=== PATIENT | female | born 1950 | race Caucasian/White ===

== ENCOUNTER 2020-03-18 19:30 | Emergency (ER) | payer MEDICARE, OTHER, SELFPAY ==
--- NOTE | ~2020-03-18 | CT_ITS ---
EXAMINATION: CT abdomen pelvis w con EXAM DATE: 03/18/2020 20:37 INDICATION: Left lower quadrant pain. TECHNIQUE: Spiral CT of the abdomen and pelvis was performed following intravenous injection of 100 m L Omnipaque 350. Axial, coronal and sagittal images were reviewed. The dose-length product (DLP) fo r this examination was 1517.69 mGy-cm. The exposure was tailored according to patient size (auto mA exposure control), and iterative reconstruction (ASIR) was used as additional dose reduction techniqu e. There is no prior study for comparison. FINDINGS: The liver, spleen, adrenal glands and pancreas are unremarkable. Gallbladder is unremarkab le. No biliary obstruction. Portal and splenic veins are patent. Kidneys enhance symmetrically. T here is no hydronephrosis. The uterus is unremarkable. The bladder is unremarkable. There is no retroperitoneal or pelvic lymphadenopathy. There is mild scattered arteriosclerotic disease. The appendix is normal. The stomach and small bowel are unremarkable. Mild to moderate sigmoid dive rticulosis with inflammation surrounding the sigmoid colon, most likely acute uncomplicated sigmoid d iverticulitis. No free intraperitoneal gas. The heart is normal in size. There are no pericardia l or pleural effusions. The lung bases are unremarkable. There are no osteoblastic or osteolytic le sions identified. IMPRESSION: 1. Findings consistent with acute uncomplicated sigmoid diverticulitis Reviewed, dictated and finalized at location A.
[2020-03-18 19:32] VITALS: BP 151/63; PULSE 83; RESP 18; TEMP 36.7; O2SAT 97
--- NOTE | 2020-03-18 19:48 | PC.NURSE ---
Patient verbalized she is post menopausal, bedside preg cancelled.
[2020-03-18 19:59] LABS: Basophils Absolute Auto 0.1 K/mm3 (0.0-0.1); Basophils Percent Auto 0.4 % (0.2-1.2); Eosinophils Absolute Auto 0.1 K/mm3 (0-0.3); Eosinophils Percent Auto 0.7 % (0-4.4); Hematocrit 38.1 % (37.0-47.0); Hemoglobin 12.6 g/dL (12.0-15.0); Immature Granulocyte Absolute 0.06 K/mm3 (0.00-0.031); Immature Granulocyte Percent A 0.5 % (0-0.5); Lymphocytes Absolute Auto 1.79 K/mm3 (0.9-3.2); Lymphocytes Percent Auto 14.6 % (18.3-44.2); Mean Corpuscular HGB Conc 33.1 g/dl (32-36); Mean Corpuscular Hemoglobin 30.3 pg (26-34); Mean Corpuscular Volume 91.6 fl (80-100); Monocytes Absolute Auto 0.7 K/mm3 (0.1-0.6); Monocytes Percent Auto 5.8 % (2.6-8.5); Neutrophils Absolute Auto 9.6 K/mm3 (1.3-6.7); Platelet Count Result 270 k/mm3 (150-375); Red Blood Count 4.16 M/mm3 (4.2-5.4); Red Cell Distribution Width 12.4 % (11.5-14.5); White Blood Count 12.3 K/mm3 (4.5-10.0)
[2020-03-18 20:06] LABS: Add Urine Microscopic? YES; Appearance Urine Clear (Clear); Bacteria Urine Trace /hpf; Bilirubin Urine Negative (Negative); Blood Urine 1+ (Negative); Color Urine Straw (Yellow); Glucose Urine UA Negative (Negative); Ketones Urine Negative (Negative); Leukocyte Esterase Ur Negative LEU/UL (Negative); Mucus Urine Rare /lpf; Nitrate Urine Negative (Negative); Protein Urine Negative (Negative); RBC Urine 0-2 /hpf (0-2); Specific Grav Ur 1.015 (1.001-1.035); Squamous Epithelial Cell Urine Rare /hpf (Few); Urobilinogen Urine Negative mg/dL (<2.0); WBC Urine 0-3 /hpf
[2020-03-18] MEDS: MORPHINE SULFATE 4 MG/ML INJ IV PUSH (20:11)
[2020-03-18] MEDS: SODIUM CHLORIDE 0.9% IV 1,000 ML 999 ML IV CONT (20:11)
[2020-03-18 20:12] LABS: Alanine Aminotransferase 18 U/L (4-35); Albumin Level 4.4 g/dL (3.5-5.1); Alkaline Phosphatase 84 U/L (38-126); Aspartate Amino Transferase 21 U/L (14-36); Bilirubin,Total 0.5 mg/dL (0.2-1.3); Blood Urea Nitrogen 13 mg/dL (7-17); Calcium 9.1 mg/dL (8.4-10.2); Carbon Dioxide 32 mmol/L (22-30); Chloride 101 mmol/L (98-107); Estimated CRCL calculation 63 ml/min; Estimated Glomerular Filt Rate > 60; Glucose 109 mg/dL (65-105); Lipase 60 U/L (23-300); Potassium 3.8 mmol/L (3.4-5.0); Sodium 138 mmol/L (137-145)
[2020-03-18 20:14] VITALS: BP 135/51; PULSE 75; RESP 18; O2SAT 95
--- NOTE | 2020-03-18 20:18 | ED.ABDPAIN ---
HPI - Abdominal Pain General Chief Complaint: Abdominal Pain Stated Complaint: I FEEL WARM, PELVIC DISCOMFORT Time Seen by Provider: 03/18/20 19:43 History of Present Illness HPI narrative: Patient is a 69-year-old female who presents ER with lower abdominal pain. Ongoing for today only. Has pressure that goes into her bottom. Worse with bending over. No urinary frequency urgency or dysuria. Has not had similar symptoms in the past. Referred here by her PCP. Afebrile and without nausea/vomiting. Related Data Home Medications Medication Instructions Recorded Confirmed omega-3 fatty acids 1,000 mg 2,000 mg PO BID cap 09/05/19 capsule Allergies Allergy/AdvReac Type Severity Reaction Status Date / Time No Known Allergies Allergy Verified 03/18/20 19:38 Review of Systems Review of Systems: All systems reviewed & are unremarkable except as noted in HPI and below Constitutional: Constitutional: Denies chills, Denies fever(s) and Denies weakness ENT: Denies nasal congestion and Denies sore throat Respiratory: Respiratory: Denies cough and Denies dyspnea Gastrointestinal: Gastrointestinal: Reports abdominal pain, Denies diarrhea, Denies nausea and Denies vomiting Genitourinary: Genitourinary: Denies nocturia and Denies dysuria PMFSH Past Medical History Medical History (Updated 03/18/20 @ 22:55 by Everton Leonard MD) Anxiety Body mass index (BMI) 45.0-49.9, adult Depression Follow up GERD (gastroesophageal reflux disease) Hemolytic anemia History of pneumonia Hyperlipidemia On longterm drug therapy Osteomyelitis Post-menopausal Surgical History Surgical History (Updated 03/18/20 @ 20:20 by Everton Leonard MD) No pertinent past surgical history Family History Family History (Updated 05/22/14 @ 07:13 by DOCTOR UNKNOWN) Mother Family history of chronic obstructive pulmonary disease Family history of heart disease in male family member before age 55 Sibling Family history of chronic obstructive pulmonary disease Social History Social History Second hand tobacco smoke exposure: No Alcohol intake: current Gender identity (if verbalized by the patient): Female Exam Narrative: Exam Narrative: GENERAL: Well-appearing, well-nourished, and in no acute distress. HEAD: Normocephalic, atraumatic. ENT: Mucous membranes moist. CHEST: Clear to auscultation. No respiratory distress. HEART: Regular rate and rhythm. Normal peripheral pulses. ABDOMEN: Soft, TTP to LLQ w/o guarding, nondistended. EXTREMITIES: Normal range of motion. No edema. SKIN: Warm, dry, no rash. NEURO: Alert and oriented x3. Course Course Emergency Course: Informed of results. D/c. Vital Signs Vital signs: Vital Signs Temperature 98.0 F 03/18/20 19:32 Pulse Rate 83 03/18/20 19:32 Respiratory Rate 18 03/18/20 19:32 Blood Pressure 151/63 H 03/18/20 19:32 Pulse Oximetry 97 03/18/20 19:32 Temperature 98.0 F 03/18/20 19:32 Pulse Rate 76 03/18/20 21:15 Respiratory Rate 18 03/18/20 21:15 Blood Pressure 136/53 L 03/18/20 21:15 Pulse Oximetry 95 03/18/20 21:15 MDM - Abdominal Pain Lab Data Result diagrams: 03/18/20 19:53 03/18/20 19:53 Labs: Lab Results 03/18/20 03/18/20 03/18/20 Range/Units 19:53 19:53 19:53 WBC 12.3 H (4.5-10.0) K/mm3 RBC 4.16 L (4.2-5.4) M/mm3 Hgb 12.6 (12.0-15.0) g/dL Hct 38.1 (37.0-47.0) % MCV 91.6 (80-100) fl MCH 30.3 (26-34) pg MCHC 33.1 (32-36) g/dl RDW 12.4 (11.5-14.5) % Plt Count 270 (150-375) k/mm3 MPV 9.0 (7.4-10.4) fl Immature Gran % (Auto) 0.5 (0-0.5) % Neut % (Auto) 78.0 H (45.5-73.1) % Lymph % (Auto) 14.6 L (18.3-44.2) % [place] % (Auto) 5.8 (2.6-8.5) % Eos % (Auto) 0.7 (0-4.4) % Baso % (Auto) 0.4 (0.2-1.2) % Lymph # (Auto) 1.79 (0.9-3.2) K/mm3 [place] # (Auto) 0.7 H (0.1-0.6) K/mm3 Eos # (Auto) 0.1 (
[2020-03-18 21:15] VITALS: BP 136/53; PULSE 76; RESP 18; O2SAT 95
[2020-03-18 23:16] VITALS: BP 141/80; PULSE 74; RESP 18; O2SAT 97
== END 2020-03-18 23:17 | disposition home or self-care (01) ==
PROVIDERS: Emergency Provider Emergency Medicine; PCP Internal Medicine
DX: K57.32 Diverticulitis of large intestine without perforation or abscess without bleeding (principal); F41.9 Anxiety disorder, unspecified; F32.9 Major depressive disorder, single episode, unspecified; K21.9 Gastro-esophageal reflux disease without esophagitis; E78.5 Hyperlipidemia, unspecified; D58.9 Hereditary hemolytic anemia, unspecified
CPT/HCPCS: 36415; 74177; 80053; 81001; 83690; 85025; 96361; 96374; 99284; A9270; J2270; J7030; Q9967

== ENCOUNTER 2020-04-01 17:28 | Outpatient (CLI) | payer MEDICARE, OTHER, SELFPAY ==
--- NOTE | ~2020-04-01 | XR_ITS ---
XR hip LT min 2V 04/01/2020 18:08 Indication: Left hip pain Procedure: 2 views left hip Comparison: No prior studies for comparison. Findings: Normal alignment. No significant joint space narrowing. No fracture, subluxation or disloca tion. No significant soft tissue abnormality. Impression: 1: No significant bone or joint abnormality. Reviewed, dictated and finalized at location A. Impression: 1: No significant bone or joint abnormality.
--- NOTE | ~2020-04-01 | XR_ITS ---
XR knee RT min 4V 04/01/2020 18:09 Indication: Right knee pain Procedure: 4 views right knee Comparison: No prior studies for comparison. Findings: There is mild-moderate tricompartment osteoarthritis. No fracture, subluxation or dislocati on. No significant joint effusion. No radiopaque foreign bodies. No osteolytic or osteoblastic lesion s. Impression: 1: Mild-moderate osteoarthritis of the right knee. Reviewed, dictated and finalized at location A. Impression: 1: Mild-moderate osteoarthritis of the right knee.
--- NOTE | ~2020-04-01 | XR_ITS ---
XR shoulder LT min 2V 04/01/2020 18:08 Indication: Left shoulder pain Procedure: 4 views left shoulder Comparison: No prior studies for comparison. Findings: Mild osteoarthritis of the acromioclavicular and glenohumeral joints. No fracture, subluxat ion or dislocation. No focal soft tissue abnormality. No foreign bodies. Visualized aspects of the arcadio ng parenchyma unremarkable. Impression: 1: Mild polyarticular osteoarthritis. Reviewed, dictated and finalized at location A. Impression: 1: Mild polyarticular osteoarthritis.
== END 2020-04-01 17:29 | disposition home or self-care (01) ==
PROVIDERS: PCP Internal Medicine; Visit Provider Internal Medicine
DX: M25.50 Pain in unspecified joint (principal); M19.012 Primary osteoarthritis, left shoulder; M17.11 Unilateral primary osteoarthritis, right knee
CPT/HCPCS: 73030; 73502; 73564

== ENCOUNTER → 2020-05-14 12:27 | Outpatient (CLI) | payer MEDICARE, SELFPAY ==
--- NOTE | ~2020-05-14 | MM_ITS ---
EXAMINATION: MM screening liborio BI w santi HISTORY: Screening mammogram TECHNIQUE: Craniocaudal and mediolateral oblique 3-D tomosynthesis images were obtained and synthetic 2-D images were generated. CAD analysis was submitted and interpreted. COMPARISON: 02/13/2019, 01/10/2018 bilateral digital screening mammogram examinations BREAST PARENCHYMAL COMPOSITION: There are scattered areas of fibroglandular density. FINDINGS: New 7.5 mm density mid to posterior depth in the outer mid left breast. Diagnostic left liborio mogram and left breast ultrasound examination are recommended. Otherwise there is no evidence of suspicious mass, calcification, or architectural distortion to sug gest malignancy in either breast. There has been no other suspicious interval change. IMPRESSION: 1. New 7.5 mm mid to posterior depth mid lateral left breast mass 2. Diagnostic left mammogram and left breast ultrasound examination are recommended. BI-RADS Category 0: Incomplete: Needs additional imaging evaluation. Reviewed, dictated and finalized at location A. IMPRESSION: 1. New 7.5 mm mid to posterior depth mid lateral left breast mass 2. Diagnostic left mammogram and left breast ultrasound examination are recomme nded. BI-RADS Category 0: Incomplete: Needs additional imaging evaluation.
== END ==
PROVIDERS: PCP Internal Medicine; Visit Provider Nurse Practitioner Obstetrics & Gynecology
DX: Z12.31 Encounter for screening mammogram for malignant neoplasm of breast (principal); R92.8 Other abnormal and inconclusive findings on diagnostic imaging of breast
CPT/HCPCS: 77063; 77067

== ENCOUNTER → 2020-05-20 07:56 | Outpatient (CLI) | payer MEDICARE, SELFPAY ==
--- NOTE | ~2020-05-20 | MMUS_ITS ---
EXAMINATION: MM diagnostic mammo unilat LT, US breast LT limited HISTORY: Left breast mass on screening mammogram TECHNIQUE: Additional 3-D tomosynthesis images of the left breast were performed and synthetic 2-D im ages were generated. CAD analysis was submitted and interpreted. High resolution limited left breast ultrasound was performed. COMPARISON: 02/13/2019, 01/10/2018, 07/06/2016, 06/28/2016 FINDINGS: MAMMOGRAPHIC FINDINGS: There is a 10 mm x 6 mm oval, obscured, equal density mass in the posterior third of the outer breast at the 2:00 location 9.5 cm deep to the nipple. ULTRASOUND: There is a 9 mm x 5 mm oval, circumscribed, parallel, hypoechoic mass with no posterior features or i nternal vascularity at the 2:00 location 5.5 cm from the nipple. IMPRESSION: 1. Suspicious left breast mass. 2. Ultrasound guided biopsy is recommended. BI-RADS category 4, suspicious findings. Reviewed, dictated and finalized at location A. IMPRESSION: 1. Suspicious left breast mass. 2. Ultrasound guided biopsy is recommended. BI-RADS category 4, suspicious findings.
== END ==
PROVIDERS: PCP Internal Medicine; Visit Provider Nurse Practitioner Obstetrics & Gynecology
DX: R92.8 Other abnormal and inconclusive findings on diagnostic imaging of breast (principal)
CPT/HCPCS: 76642; 77065

== ENCOUNTER 2020-10-12 14:15 | Outpatient (CLI) | payer MEDICARE, OTHER, SELFPAY ==
--- NOTE | ~2020-10-12 | MR_ITS ---
EXAMINATION: MR lumbar spine wo con DATE: 10/12/2020 15:06 INDICATION: Lumbar radiculopathy. TECHNIQUE: Magnetic resonance imaging (MRI) of the lumbar spine was performed without intravenous con trast. Sequences included sagittal T2-weighted FSE, sagittal T2-weighted FS FSE, sagittal T1-weighted FSE, and axial T2-weighted FSE. COMPARISON: None FINDINGS: Bone alignment is normal. Vertebral body heights are normal. There is a hemangioma in L5 ve rtebral body. The distal spinal cord signal intensity is normal. The conus medullaris is at L1-L2. Th ere is a 1.9 cm cyst in right kidney. The following disc levels are specifically discussed: L1-L2: The disc does not extend beyond the endplate margin. There is mild bilateral facet joint osteo arthritis. There is no neural foraminal stenosis. There is no central canal stenosis. L2-L3: The disc does not extend beyond the endplate margin. There is mild bilateral facet joint osteo arthritis. There is no neural foraminal stenosis. There is no central canal stenosis. L3-L4: The disc does not extend beyond the endplate margin. There is severe bilateral facet joint ost eoarthritis. There is mild bilateral neural foraminal stenosis. There is no central canal stenosis. L4-L5: The disc does not extend beyond the endplate margin. There is severe bilateral facet joint ost eoarthritis. There is mild bilateral neural foraminal stenosis. There is no central canal stenosis. L5-S1: The disc does not extend beyond the endplate margin. There is severe bilateral facet joint ost eoarthritis. There is mild bilateral neural foraminal stenosis. There is no central canal stenosis. IMPRESSION: 1. Mild lumbar spondylosis. Reviewed, dictated and finalized at location B. 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 Mild lumbar spondylosis.
== END 2020-10-12 14:16 | disposition home or self-care (01) ==
LOC: ANHIMG 14:25
PROVIDERS: PCP Internal Medicine; Visit Provider Orthopaedic Surgery
DX: M48.00 Spinal stenosis, site unspecified (principal); M47.26 Other spondylosis with radiculopathy, lumbar region
CPT/HCPCS: 72148

== ENCOUNTER 2021-01-07 13:27 | Outpatient (CLI) | payer MEDICARE, OTHER, SELFPAY ==
--- NOTE | ~2021-01-07 | MR_ITS ---
EXAMINATION: MR ankle RT wo con DATE: 01/07/2021 15:12 INDICATION: Heel pain. Bone spur. TECHNIQUE: Magnetic resonance imaging (MRI) of the right ankle was performed without intravenous cont rast. Sequences included sagittal PD-weighted FS FSE, sagittal PD-weighted FSE, coronal PD-weighted F S FSE, coronal PD-weighted FSE, axial PD-weighted FS FSE, and axial PD-weighted FSE. COMPARISON: None. FINDINGS: Medial ankle ligaments: There is a chronic partial tear of superficial component of the deltoid ligament. Deep components of the deltoid ligament is intact. Lateral ankle ligaments: There are changes of prior lateral ankle sprain with thickening of anterior talofibular ligament. Juice caneofibular ligament and posterior talofibular ligament are normal. The anterior and posterior tibio fibular ligaments are intact. Tendons: The anterior and medial ankle tendons are normal. Achilles tendon adenopathy is noted. There is a par tial tear of the Achilles tendon at its distal attachment. There is a longitudinal split tear of tomas neus brevis tendon. Plantar fascia: The plantar fascia is normal. There is an enthesophyte at the calcaneal attachment. Bones/other: Bone alignment is normal. There is shallow partial-thickness cartilage loss in the tibiotalar joint. Fluid: There is no joint effusion. There is pre-Achilles bursitis. IMPRESSION: 1. Partial tear of Achilles tendon at its distal attachment. 2. Longitudinal split tear of peroneus brevis tendon. 3. Mild tibiotalar joint chondrosis. 4. Changes of prior medial and lateral ankle sprains. Reviewed, dictated and finalized at location A.
== END 2021-01-07 13:28 | disposition home or self-care (01) ==
PROVIDERS: PCP Internal Medicine; Visit Provider Podiatrist Foot & Ankle Surgery
DX: M76.61 Achilles tendinitis, right leg (principal)
CPT/HCPCS: 73721

== ENCOUNTER 2021-06-19 07:11 | Outpatient (CLI) | payer MEDICARE, OTHER, SELFPAY ==
--- NOTE | ~2021-06-19 | MR_ITS ---
EXAMINATION: MR knee RT wo con DATE: 06/19/2021 08:38 INDICATION: Right knee pain TECHNIQUE: Magnetic resonance imaging (MRI) of the right knee was performed without intravenous contr ast. Sequences included coronal PD-weighted FSE, coronal PD-weighted FS FSE, sagittal T2-weighted FS E, sagittal PD-weighted FS FSE and axial PD weighted fat saturated FSE. COMPARISON: Right knee radiographs dated 12/07/2020 FINDINGS: Evaluation mildly limited by motion artifact or blurring to some degree on mostly sequences including a couple repeated sequences. Medial compartment: Complex tear of the body and posterior horn of the medial meniscus. There is subluxation of the porti on of the anterior body of the meniscus into the inferior gutter along side the rim of the medial tib ial plateau. Extensive deep chondral ulceration and fissuring involving greater than 50% the cartilag e thickness along much of the medial tibial plateau and the anterior to central weightbearing medial femoral condyle. There is stable small regions of mild subarticular edema along the anterior weightbe aring medial femoral condyle. Small to moderate size marginal osteophytes are present. Lateral compartment: Lateral meniscus is normal. Small central subchondral osteophytes underlying a region of deep chondra l fissuring at the posterior weightbearing lateral femoral condyle. Remaining cartilage in the latera l compartment appears relatively preserved. Patellofemoral compartment: Extensive partial thickness patellar and trochlear chondral ulceration and fissuring greatest at the apical ridge and trochlear groove where it involves greater than 50% the cartilage thickness but with out degenerative subchondral changes. Ligaments and tendons: The posterior cruciate ligament is normal. The anterior cruciate ligament is poorly visualized on the sagittal images. The anteromedial bundle appears intact on the coronal and axial images. There is fl uid signal along the femoral footplate of the anteromedial bundle which is likely torn with prominent osteophyte arising from the lateral aspect of the anterior intercondylar notch which occupies the no rmal course of the more distal portion of the ligament. The medial collateral ligament and fibular co llateral ligament complex are normal. There is some laxity resulting in small horizontal bands of mag ic angle artifact along the otherwise normal-appearing patellar tendon. The quadriceps tendon is also normal. The visualized medial and lateral hamstring tendons as well as the iliotibial band are emily l. Fluid: Moderate-sized right knee joint effusion. No loose osteochondral bodies identified. Small to moderate -sized Shannon's cyst including both a smaller more superficial component and a larger deeper component . Osseous/other: No fracture or abnormal marrow replacing process. IMPRESSION: 1. Evaluation mildly limited by motion artifact on multiple sequences including a pair of repeated se quences. 2. Complex medial meniscal tear. 3. Likely partial anterior cruciate ligament tear involving the posterolateral bundle. 4. Tricompartmental osteoarthritis, most severe in the medial compartment where it is of moderate sev erity with extensive high-grade chondromalacia. 5. Moderate-sized right knee joint effusion and small to moderate-sized Shannon's cyst. Reviewed, dictated and finalized at location A. IMPRESSION: 1. Evaluation mildly limited by motion artifact on multiple sequences including a pair of repeated sequences. 2. Complex medial meniscal tear. 3. Likely partial anterior cruciate ligament tear involving the posterolateral bundle. 4. Tricompartmental osteoarthritis, most severe in the medial compartment where it is of moderate severity
== END 2021-06-19 07:12 | disposition home or self-care (01) ==
LOC: ANHIMG 07:15
PROVIDERS: PCP Internal Medicine; Visit Provider Nurse Practitioner Adult Health
DX: M17.11 Unilateral primary osteoarthritis, right knee (principal); M25.461 Effusion, right knee; S83.231A Complex tear of medial meniscus, current injury, right knee, initial encounter; X58.XXXA Exposure to other specified factors, initial encounter
CPT/HCPCS: 73721

== ENCOUNTER 2021-08-30 14:43 | Outpatient (CLI) | payer MEDICARE, OTHER, SELFPAY ==
--- NOTE | ~2021-08-30 | MR_ITS ---
EXAMINATION: MR ankle RT wo con DATE: 08/30/2021 15:58 INDICATION: Achilles tendinitis and arthritis at the right ankle and hindfoot. TECHNIQUE: Magnetic resonance imaging (MRI) of the right ankle was performed without intravenous cont rast. Sequences included sagittal, coronal, and axial proton-density weighted fast spin echo without and with fat saturation. COMPARISON: None. FINDINGS: Medial ankle ligaments: Deep and superficial deltoid ligaments as well as the spring ligament are normal. Lateral ankle ligaments: The anterior and posterior inferior tibiofibular ligaments are normal. The anterior talofibular, calc aneofibular and posterior talofibular ligaments are normal. Tendons: Achilles tendinosis with prominent thickening of the distal Achilles tendon. Multiple foci of suscept ibility artifact overlying the distal Achilles tendon with 4 anchors at the calcaneal insertion of th e Achilles tendon consistent with prior Achilles tendon repair. No recurrent tear or peritendinitis. The peroneus longus and brevis tendons are normal. The tibialis anterior and extensor hallucis longus and extensor digitorum longus tendons are normal. Small amount of fluid in the tendon sheath surroun ding the normal tibialis posterior and flexor digitorum longus tendons consistent with mild tenosynov itis. The flexor hallucis longus tendon is normal. Plantar fascia: Moderate-sized enthesophyte at the calcaneal origin of the otherwise normal plantar aponeurosis. Bones/other: Mild tibiotalar and subtalar osteoarthritis. Moderate osteoarthritis at the third and fourth tarsal m etatarsal joints where there is subarticular increased marrow signal on both sides of the joint space s as well as cystlike changes at the lateral cuneiform. Fluid: Small ganglion cyst at the dorsal/lateral aspect of the talonavicular joint. Otherwise physiologic am ount fluid in the joint spaces. IMPRESSION: 1. Tendinosis but with intact appearing repair of the distal Achilles tendon. 2. Polyarticular osteoarthritis, moderate at the third and fourth tarsal metatarsal joints and mild a t the second tarsal metatarsal, tibiotalar and subtalar joints. 3. Mild tibialis posterior and flexor digitorum longus tenosynovitis with normal-appearing tendons. Reviewed, dictated and finalized at location B. 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 Tendinosis but with intact appearing repair of the distal Achilles tendon. 2. Polyarticular osteoarthritis, moderate at the third and fourth tarsal metata rsal joints and mild at the second tarsal metatarsal, tibiotalar and subtalar j oints. 3. Mild tibialis posterior and flexor digitorum longus tenosynovitis with emily l-appearing tendons.
== END 2021-08-30 14:44 | disposition home or self-care (01) ==
PROVIDERS: PCP Internal Medicine; Visit Provider Podiatrist Foot & Ankle Surgery
DX: M76.61 Achilles tendinitis, right leg (principal); M13.871 Other specified arthritis, right ankle and foot
CPT/HCPCS: 73721

== ENCOUNTER 2022-10-05 01:10 | Day surgery (SDC) | payer MEDICARE, OTHER, SELFPAY ==
[2022-09-22 10:49] VITALS: BMI 44.7
--- NOTE | 2022-10-04 13:13 | PM.HPGS ---
History of Present Illness History of Present Illness Consent: Risks, benefits, and alternatives have been discussed and questions answered. Patient agrees to proceed with procedure. Chief complaint: hx of colon polyps Narrative: Kamila Moon is a 72 year old female Referred for colon cancer screening. She had a polyp removed about 5 years ago. Review of Systems Review of Systems: All systems reviewed & are unremarkable except as noted in HPI and below PMFSH Past Medical History Medical History Abnormal finding of blood chemistry Acute pain of right shoulder Anxiety Anxiety with depression Arthritis of right knee Body mass index (BMI) 40.0-44.9, adult Body mass index (BMI) 45.0-49.9, adult Bronchitis Colon cancer screening Cough Depression Diverticulitis DJD (degenerative joint disease) of knee Encounter for Medicare annual wellness exam Encounter for routine adult health examination without abnormal findings Exposure to COVID-19 virus Follow up Frozen shoulder GERD (gastroesophageal reflux disease) Hemolytic anemia History of pneumonia Hospital discharge follow-up Hx of colonic polyps Hyperlipidemia Left hip pain Lumbar spondylosis On alf drug therapy Osteomyelitis Polyarthralgia Post-menopausal Pre-diabetes Vitamin D deficiency Surgical History Surgical History No pertinent past surgical history S/P Achilles tendon repair Family History Family History Mother Family history of chronic obstructive pulmonary disease Family history of heart disease in male family member before age 55 Sibling Family history of chronic obstructive pulmonary disease Social History Social History Smoking packs per day: 0.5 Smoking cigarettes per day: 10.0 Smoking status: Former smoker Tobacco type: cigarettes Second hand tobacco smoke exposure: No Smoking end date: 08/27/90 Alcohol intake: current Living arrangements: with family Gender identity (if verbalized by the patient): Female Spiritual care concerns: No Meds Home Medications and Allergies Home Medications Medication Instructions Recorded Confirmed Type omega-3 fatty acids 1,000 mg 2,000 mg PO BID 09/05/19 09/22/22 History capsule (Fish Oil Concentrate) acetaminophen 650 mg 650 mg PO Q8H PRN Pain 11/09/21 12/29/22 History tablet,extended release (Tylenol Arthritis Pain) cholecalciferol (vitamin D3) 50 50 mcg PO DAILY #90 caps 07/14/22 09/22/22 Rx mcg (2,000 unit) capsule cholecalciferol (vitamin D3) 1,250 See Rx Instructions .Route 08/26/22 09/22/22 Rx mcg (50,000 unit) capsule .COMPLEX #3 caps atorvastatin 80 mg tablet 80 mg PO DAILY #90 tabs 10/03/22 Rx celecoxib 100 mg capsule 100 mg PO BID #180 caps 10/03/22 Rx duloxetine 60 mg capsule,delayed 60 mg PO DAILY #90 caps 10/03/22 Rx release (Cymbalta) Allergies Allergy/AdvReac Type Severity Reaction Status Date / Time No Known Allergies Allergy Verified 10/05/22 07:51 Exam Resp: Auscultation: clear to auscultation bilaterally Cardio: Rate: regular rate Rhythm: regular rhythm GI: GI Palp: Yes Soft to palpation and No Tenderness to palpation present (GI) Assessment and Plan Assessment and plan (1) Colon cancer screening: Code(s): Z12.11 - Encounter for screening for malignant neoplasm of colon Status: Acute Assessment and Plan: Colonoscopy with possible biopsy or polypectomy or cautery or injection of substances.
[2022-10-05 07:52] VITALS: BP 140/64; PULSE 73; RESP 18; TEMP 36.3; O2SAT 98
[2022-10-05] MEDS: LACTATED RINGERS 1,000 ML 150 ML IV CONT (08:00)
--- NOTE | 2022-10-05 08:34 | WPDANESEPPF ---
Anes - Initial Pre Proc Eval Procedure: Operation Date: 10/05/22 09:00 Proposed Procedures p Screening Colonoscopy - Francisco Grant MD Date/Time: 10/05/22 08:34 Surgeon: Francisco Grant MD Pre Op Diagnosis: hx of colon polyps Patient Data Age: 72 Gender: F Height: 1.57 m Weight: 105 kg Last Vital Signs Temp 97.4 F L 10/05/22 07:52 Pulse 73 10/05/22 07:52 Resp 18 10/05/22 07:52 BP 140/64 10/05/22 07:52 Pulse Ox 98 10/05/22 07:52 O2 Del Method Room Air 10/05/22 07:52 Allergies Allergy/AdvReac Type Severity Reaction Status Date / Time No Known Allergies Allergy Verified 10/05/22 07:51 Home Medications Medication Instructions Recorded Confirmed Type omega-3 fatty acids 1,000 mg 2,000 mg PO BID 09/05/19 09/22/22 History capsule (Fish Oil Concentrate) acetaminophen 650 mg 650 mg PO Q8H PRN Pain 08/03/21 09/22/22 History tablet,extended release (Tylenol Arthritis Pain) cholecalciferol (vitamin D3) 50 50 mcg PO DAILY #90 caps 07/14/22 09/22/22 Rx mcg (2,000 unit) capsule cholecalciferol (vitamin D3) 1,250 See Rx Instructions .Route 08/26/22 09/22/22 Rx mcg (50,000 unit) capsule .COMPLEX #3 caps atorvastatin 80 mg tablet 80 mg PO DAILY #90 tabs 10/03/22 Rx celecoxib 100 mg capsule 100 mg PO BID #180 caps 10/03/22 Rx duloxetine 60 mg capsule,delayed 60 mg PO DAILY #90 caps 10/03/22 Rx release (Cymbalta) Patient hx anesthesia problems: none Family hx anesthesia problems: none Results Review: All pre-operative results and documents have been reviewed as part of the pre-operative evaluation. [facility] Past Medical History Medical History (Updated 06/29/22 @ 11:[address] [facility]) Abnormal finding of blood chemistry Acute pain of right shoulder Anxiety Anxiety with depression Arthritis of right knee Body mass index (BMI) 40.0-44.9, adult Body mass index (BMI) 45.0-49.9, adult Bronchitis Colon cancer screening Cough Depression Diverticulitis DJD (degenerative joint disease) of knee Encounter for Medicare annual wellness exam Encounter for routine adult health examination without abnormal findings Exposure to COVID-19 virus Follow up Frozen shoulder GERD (gastroesophageal reflux disease) Hemolytic anemia History of pneumonia Hospital discharge follow-up Hx of colonic polyps Hyperlipidemia Left hip pain Lumbar spondylosis On correction drug therapy Osteomyelitis Polyarthralgia Post-menopausal Pre-diabetes Vitamin D deficiency Surgical History Surgical History No pertinent past surgical history S/P Achilles tendon repair Family History Family History Mother Family history of chronic obstructive pulmonary disease Family history of heart disease in male family member before age 55 Sibling Family history of chronic obstructive pulmonary disease Social History Social History Smoking packs per day: 0.5 Smoking cigarettes per day: 10.0 Smoking status: Former smoker Tobacco type: cigarettes Second hand tobacco smoke exposure: No Smoking end date: 08/27/90 Alcohol intake: current Living arrangements: with family Gender identity (if verbalized by the patient): Female Spiritual care concerns: No Anes - Eval Final PreProcedure Day of Procedure 10/05/22 08:34 Patient weight: morbidly obese Heart: regular rate and rhythm Lungs: clear to auscultation Airway: Mallampati scale class II Neurological: alert and oriented Last oral intake: >/= 8 hours ASA classification: III Emergent: no Anesthetic plan: proceed Anesthesia type and monitoring: general GIVS and standard monitoring Results Review: All pre-operative results and documents have been reviewed as part of the pre-operative evaluation. Informed Consent: The patient's anesthetic plan and
[2022-10-05 08:55] VITALS: BP 119/53; PULSE 65; RESP 16; O2SAT 99
[2022-10-05 09:05] VITALS: BP 121/44; PULSE 62; RESP 18; O2SAT 100
[2022-10-05 09:15] VITALS: BP 148/61; PULSE 62; RESP 18; O2SAT 100
== END 2022-10-05 09:25 | disposition home or self-care (01) ==
PROVIDERS: PCP Internal Medicine; Visit Provider Internal Medicine Gastroenterology
PROC: 0DJD8ZZ Inspection of Lower Intestinal Tract, Via Natural or Artificial Opening Endoscopic (ICD-10-PCS; CPT 45378; principal; 2022-10-05 09:00)
DX: Z12.11 Encounter for screening for malignant neoplasm of colon (principal); K57.30 Diverticulosis of large intestine without perforation or abscess without bleeding; K64.8 Other hemorrhoids; Z86.010 Personal history of colon polyps; E78.5 Hyperlipidemia, unspecified; F41.8 Other specified anxiety disorders; E55.9 Vitamin D deficiency, unspecified; Z87.891 Personal history of nicotine dependence; E66.01 Morbid (severe) obesity due to excess calories; Z68.41 Body mass index [BMI] 40.0-44.9, adult
CPT/HCPCS: G0105; J2704; J7120

== ENCOUNTER 2023-06-28 09:41 | Outpatient (CLI) | payer MEDICARE, OTHER, SELFPAY ==
--- NOTE | ~2023-06-28 | XR_ITS ---
EXAMINATION: XR UGI w barium swallow DATE: 06/28/2023 10:35 INDICATION: Dysphagia TECHNIQUE: The patient drank thick barium, gas-producing crystals, and thin barium. Fluoroscopic spot radiographs of the hypopharynx, esophagus, stomach and proximal small bowel were obtained. Fluorosco py exposure time was 2.2 minutes. A total of 1154 images were recorded. COMPARISON: None. FINDINGS: The pharynx is symmetric and without evidence of mass lesion or mucosal irregularity. The esophagus i s normal without mass or stricture. Esophageal motility is within normal limits for age. There is a s mall sliding-type hiatal hernia with gastroesophageal junction position 5 cm above level of the diaph ragm. Single episode of gastroesophageal reflux of a small amount of contrast extending to the level of the mid esophagus during the stomach distended by gas following the double contrast portion of the examination. Only trace amount of gastroesophageal reflux was subsequently observed with provocative maneuvers. The stomach and proximal small bowel are normal. IMPRESSION: 1. Small sliding-type hiatal hernia with small amount of gastroesophageal reflux. Reviewed, dictated and finalized at location A. IMPRESSION: 1. Small sliding-type hiatal hernia with small amount of gastroesophageal reflu x.
== END 2023-06-28 09:42 | disposition home or self-care (01) ==
PROVIDERS: PCP Internal Medicine; Visit Provider Internal Medicine
DX: R13.10 Dysphagia, unspecified (principal); K44.9 Diaphragmatic hernia without obstruction or gangrene
CPT/HCPCS: 74240

== ENCOUNTER 2023-08-02 11:54 | Outpatient (CLI) | payer MEDICARE, OTHER, SELFPAY ==
--- NOTE | ~2023-08-02 | XR_ITS ---
EXAMINATION: XR knee LT min 4V DATE: 08/02/2023 12:18 INDICATION: Left knee pain TECHNIQUE: Four views of the left knee were obtained. COMPARISON: None. FINDINGS: Alignment is normal. No fracture or osteochondral lesion. There are calcified loose bodies in the knee. There is moderate tricompartmental osteoarthritis. No joint effusion/synovitis. Soft ti ssues are unremarkable. A bone island is noted in the proximal tibia. IMPRESSION: 1. Osteoarthritis and calcified loose bodies of the knee joint without acute osseous abnormality. Reviewed, dictated and finalized at location B. ADJUDICATION SPECIALIST IMPRESSION: 1. Osteoarthritis and calcified loose bodies of the knee joint without acute os seous abnormality.
== END 2023-08-02 11:55 | disposition home or self-care (01) ==
PROVIDERS: PCP Internal Medicine; Visit Provider Internal Medicine
DX: M17.12 Unilateral primary osteoarthritis, left knee (principal)
CPT/HCPCS: 73564

== ENCOUNTER 2024-01-24 11:25 | Outpatient (CLI) | payer MEDICARE, OTHER, SELFPAY ==
--- NOTE | ~2024-01-24 | XR_ITS ---
Left Shoulder Technique: AP and scapular Y views were obtained. Clinical History: Pain Findings: No fracture or dislocation is seen. Osseous alignment is anatomic. There is moderate AC angel nt degenerative change. There is minimal glenohumeral joint degenerative change. Soft tissues are unr emarkable. Impression: Degenerative changes, as above. Reviewed, dictated and finalized at location . Impression: Degenerative changes, as above.
--- NOTE | ~2024-01-24 | XR_ITS ---
Left Knee Technique: AP, lateral, and sunrise views were obtained. Clinical History: Pain Findings: No fracture or dislocation is seen. Osseous alignment is anatomic. Moderate tricompartmenta l degenerative change present. Soft tissues are unremarkable. No joint effusion is seen. Impression: Moderate tricompartmental degenerative change. Reviewed, dictated and finalized at [facility]. Impression: Moderate tricompartmental degenerative change.
--- NOTE | ~2024-01-24 | XR_ITS ---
Right Shoulder Technique: AP and scapular Y views were obtained. Clinical History: Pain Findings: No fracture or dislocation is seen. Osseous alignment is anatomic. Moderate AC joint degene rative change present. Minimal glenohumeral joint degenerative change present. Soft tissues are unrem arkable. Impression: Degenerative changes, as above. Reviewed, dictated and finalized at location M. Impression: Degenerative changes, as above.
--- NOTE | ~2024-01-24 | XR_ITS ---
XR hip RT min 2V 01/24/2024 12:12 Indication: Right hip pain Procedure: 2 views right hip Comparison: No prior studies for comparison. Findings: Mild osteoarthritis of the right hip. There is anatomic alignment. No fracture or traumatic malalignment. Normal mineralization. No soft tissue abnormality. Impression: 1: Mild osteoarthritis of the right hip. Reviewed, dictated and finalized at location B. Impression: 1: Mild osteoarthritis of the right hip.
== END 2024-01-24 11:26 | disposition home or self-care (01) ==
PROVIDERS: PCP Internal Medicine; Visit Provider Internal Medicine
DX: G89.29 Other chronic pain (principal); M16.11 Unilateral primary osteoarthritis, right hip; M19.011 Primary osteoarthritis, right shoulder; M19.012 Primary osteoarthritis, left shoulder; M17.12 Unilateral primary osteoarthritis, left knee
CPT/HCPCS: 73030; 73502; 73564

== ENCOUNTER 2024-01-29 10:35 | Emergency (ER) | payer MEDICARE, OTHER, SELFPAY ==
[2024-01-29 10:38] VITALS: BP 151/74; PULSE 67; RESP 16; TEMP 36.6; O2SAT 100
[2024-01-29 11:02] LABS: Basophils Percent Auto 0.6 % (0.2-1.2); Eosinophils Absolute Auto 0.1 K/mm3 (0-0.3); Eosinophils Percent Auto 1.3 % (0-4.4); Hematocrit 37.3 % (37.0-47.0); Immature Granulocyte Absolute 0.03 K/mm3 (0.00-0.031); Immature Granulocyte Percent A 0.4 % (0-0.5); Lymphocytes Absolute Auto 1.69 K/mm3 (0.9-3.2); Lymphocytes Percent Auto 24.6 % (18.3-44.2); Mean Corpuscular HGB Conc 32.2 g/dl (32-36); Mean Corpuscular Hemoglobin 30.6 pg (26-34); Mean Corpuscular Volume 95.2 fl (80-100); Mean Platelet Volume 9.2 fl (7.4-10.4); Monocytes Absolute Auto 0.5 K/mm3 (0.1-0.6); Monocytes Percent Auto 6.7 % (2.6-8.5); Neutrophils Absolute Auto 4.6 K/mm3 (1.3-6.7); Neutrophils Percent Auto 66.4 % (45.5-73.1); Platelet Count Result 250 k/mm3 (150-375); Red Blood Count 3.92 M/mm3 (4.2-5.4); Red Cell Distribution Width 12.4 % (11.5-14.5); White Blood Count 6.9 K/mm3 (4.5-10.0)
[2024-01-29 11:13] LABS: Alanine Aminotransferase 16 U/L (6-35); Albumin Level 4.5 g/dL (3.5-5.1); Alkaline Phosphatase 74 U/L (38-126); Anion Gap 7 mmol/L (4-12); Aspartate Amino Transferase 17 U/L (14-36); Bilirubin,Total 0.6 mg/dL (0.2-1.3); Blood Urea Nitrogen 13 mg/dL (7-17); Calcium 9.6 mg/dL (8.4-10.2); Carbon Dioxide 28 mmol/L (22-30); Chloride 106 mmol/L (98-107); Estimated CRCL calculation 57 ml/min; Estimated Glomerular Filt Rate > 60; Glucose 101 mg/dL (65-110); Lipase 41 U/L (23-300); Potassium 4.1 mmol/L (3.4-5.0); Sodium 141 mmol/L (137-145)
[2024-01-29 11:36] LABS: Appearance Urine Cloudy (Clear); Bilirubin Urine Negative (Negative); Blood Urine Trace (Negative); Color Urine Yellow (Yellow); Glucose Urine UA Negative (Negative); Ketones Urine Negative (Negative); Leukocyte Esterase Ur 2+ LEU/UL (Negative); Nitrate Urine Negative (Negative); Protein Urine Negative (Negative); RBC Urine 0-2 /hpf (0-2); Specific Grav Ur 1.022 (1.001-1.035); Urobilinogen Urine 0.2 mg/dL (<2.0); WBC Urine >100 /hpf (0-3)
[2024-01-29 11:37] LABS: Bacteria Urine 3+ /hpf; Squamous Epithelial Cell Urine Moderate /hpf (Few)
[2024-01-29 11:43] LABS: Add Urine Microscopic? YES
--- NOTE | 2024-01-29 11:52 | ED.ABDPAIN ---
HPI - Abdominal Pain General Chief Complaint: Abdominal Pain Stated Complaint: abd pain Time Seen by Provider: 01/29/24 11:26 Source: patient Mode of arrival: ambulatory Limitations: no limitations History of Present Illness HPI narrative: Kamila is a 73-year-old female patient presenting to the clinic today with complaints of lower abdominal pain, low back pain, and burning, frequency, and urgency with urination. States this has been going on for few weeks. Does report some associated nausea without any vomiting or diarrhea. Last bowel movement was 2 days ago. Denies any fever or chills. Related Data Home Medications Medication Instructions Recorded Confirmed omega-3 fatty acids 1,000 mg 2,000 mg PO BID 09/05/19 01/22/24 capsule (Fish Oil Concentrate) acetaminophen 650 mg 650 mg PO Q8H PRN Pain 08/03/21 01/22/24 tablet,extended release (Tylenol Arthritis Pain) cholecalciferol (vitamin D3) 50 50 mcg PO DAILY 06/23/23 01/22/24 mcg (2,000 unit) capsule Allergies Allergy/AdvReac Type Severity Reaction Status Date / Time No Known Allergies Allergy Verified 01/22/24 14:33 Review of Systems Review of Systems: Pertinent positives per HPI. Patient denies any fever, chills, rash, headache, visual changes, dizziness, cough, runny nose, sore throat, shortness of breath, chest pain, palpitations, nausea, vomiting, diarrhea, constipation PMFSH Past Medical History Medical History (Updated 01/29/24 @ 11:57 by Jefe Tena APRN) Abnormal finding of blood chemistry Acute pain of right shoulder Anxiety with depression Arthralgia Arthritis of right knee Bilateral shoulder pain Body mass index (BMI) 40.0-44.9, adult Body mass index (BMI) 45.0-49.9, adult Bronchitis Colon cancer screening Cough Diverticulitis DJD (degenerative joint disease) of knee Encounter for Medicare annual wellness exam Encounter for routine adult health examination with abnormal findings Encounter for routine adult health examination without abnormal findings Exposure to COVID-19 virus Follow up Frozen shoulder GERD (gastroesophageal reflux disease) Hemolytic anemia History of pneumonia Hospital discharge follow-up Hx of colonic polyps Hyperlipidemia Left hip pain Lumbar spondylosis 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 Osteomyelitis Polyarthralgia Post-menopausal Pre-diabetes Vitamin D deficiency Surgical History Surgical History No pertinent past surgical history S/P Achilles tendon repair Family History Family History Mother Family history of chronic obstructive pulmonary disease Family history of heart disease in male family member before age 55 Sibling Family history of chronic obstructive pulmonary disease Social History Social History Smoking packs per day: 0.5 Smoking cigarettes per day: 10.0 Smoking status: Former smoker Tobacco type: cigarettes Second hand tobacco smoke exposure: No Smoking end date: 08/27/90 Alcohol intake: current Lack of Transportation: No Lack of Food: Never True Current Housing: I Have Housing Concerned About Future Housing: No Difficulty Paying Gas/Electric Bills: No Difficulty Paying for Meds: No Currently Unemployed: No Education: High School Diploma/GED Difficulty w/ Childcare or Family Care: No Living arrangements: with family Gender identity (if verbalized by the patient): Female Spiritual care concerns: No Comments At the time of my signature, I reviewed and agree with the nursing past medical, surgical, social, and family history. There is no relevant family history pertinent to the patient complaint. Exam Narrative: General: Well-developed, morbidly obese, in no apparent distress. Head: Normocephalic, atraumatic. Cardio: Regular rate and rhythm, s1 and s2 normal, no m
[2024-01-29 12:03] VITALS: BP 132/71; PULSE 82; RESP 18; O2SAT 98
== END 2024-01-29 12:05 | disposition home or self-care (01) ==
PROVIDERS: Emergency Medicine; Emergency Provider Nurse Practitioner Family; PCP Internal Medicine
DX: N39.0 Urinary tract infection, site not specified (principal); F41.9 Anxiety disorder, unspecified; F32.A Depression, unspecified; K21.9 Gastro-esophageal reflux disease without esophagitis; E78.5 Hyperlipidemia, unspecified
CPT/HCPCS: 36415; 80053; 81001; 83690; 85025; 87086; 99283

== ENCOUNTER 2025-08-04 12:40 | Outpatient (CLI) | payer MEDICARE, OTHER, SELFPAY ==
--- NOTE | ~2025-08-04 | XR_ITS ---
EXAMINATION: XR ankle LT min 3V, [id number] DATE: 08/04/2025 13:08 INDICATION: Left foot pain post fall one month prior TECHNIQUE: 1. Anteroposterior, mortise, additional oblique and lateral view of the left ankle were obtained. 2. Dorsoplantar, two oblique and lateral views of the left foot were obtained. COMPARISON: None. FINDINGS: Alignment of the left foot and ankle is normal. Mild polyarticular osteoarthritis involving multiple joints throughout the left foot. Moderate- sized plantar calcaneal spurs. Small Achilles calcaneal spurs and a few small enthesopathic ossicles in the thickened distal Achilles tendon. No ankle joint effusion. The soft tissues are unremarkable. IMPRESSION: 1. No acute osseous abnormality at the left foot or ankle. 2. 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 Reviewed, dictated and finalized at location A. T OPERATOR IMPRESSION: 1. No acute osseous abnormality at the left foot or ankle. 2. Degenerative skeletal changes including mild polyarticular osteoarthritis th roughout the left foot and chronic plantar calcaneal and Achilles calcaneal ent hesopathy.
--- OUTSIDE RECORDS SUMMARY | 2025-08-04 12:54 | XMS_ITS | Encounter Summary ---
Author Organization [facility] Health Address [address] [place] [address] Care Team Providers Care Release Of Information Specialist Name Role Phone Bud Sweet MD Primary Care Provider [phone] Encounter Details Date Type Department Care Team (Late st Contact Info) Description 08/01/2025 Results Follow-Up [facility] Pretesting Center [address] [facility] [place] [address] Dima Harrison, DECK OFFICER-CASE SUPERVISOR [address] [place] [phone] Social History Tobacco Use Types Packs/Day Years Used Date Smoking Tobacco: Never Smokeless Tobacco: Never Alcohol Use Standard Drinks/Week Comments Yes 0 (1 standard drink = 0.6 oz pur e alcohol) social Comments Unknown Sex and Gender Information Value Date Recorded Sex Assigned at Not on file Legal Sex Female 2:11 PM CDT Gender Identity Not on file Sexual Orientation Not on file documented as of this encounter Functional Status documented as of this encounter Progress Notes * Nicolasa Stephenson RN - 08/01/2025 11:13 AM CST [facility] Faxed to PCP via [employer] per Instructions NTING SKILLS INSTRUCTOR documented in this encounter Plan of Treatment Upcoming Encounters Date Type Department Care Team (Latest Contact Info) Description 08/29/2025 8:25 AM PARENTING SKILLS INSTRUCTOR Hospital Encounter [facility] - Perioperative Surgery [address] [place] [id number] [place] [id number] [facility] [address] [place] [id number] Surgery General 08/29/2025 8:25 AM PARENTING SKILLS INSTRUCTOR - 08/29/2025 10:41 AM PARENTING SKILLS INSTRUCTOR Surgery [facility] - Perioperative Surgery [address] [place] [id number] [place] [id number] [facility] [address] [phone] ARTHROPLASTY LEFT TOTAL KNEE Scheduled Procedures Name Priority Associated Diagnoses Date/Ti me ARTHROPLASTY TOTAL KNEE 01/2025 8:25 AM PARENTING SKILLS INSTRUCTOR documented as of this encounter Visit Diagnoses Not on filedocumented in this encounter Care Teams Release Of Information Specialist Relationship Specialty Start Date End Date Bud Sweet MD [address] [place] [address] PCP - General 03/05/19 documented as of this encounter
--- OUTSIDE RECORDS SUMMARY | 2025-08-04 12:54 | XMS_ITS | Encounter Summary ---
Author Organization [facility] Address [address] [facility] [address] [place] [address] Phone Care Team Providers Care Child Support Investigator Name Role Phone Bud Sweet MD Primary Care Provider [phone] Estefani Givens DPM Unavailable [phone] Crystal Lea MOTOR COACH DRIVER Unavailable [phone] Encounter Details Date Type Department Care Team (Late st Contact Info) Description 06/23/2025 Results Follow-Up [facility] Medicine Surgery [address] [facility] [address] [place] [address] Zarina Brownlee PA [address] [facility] [phone] [place], [place] [id number] Screening Mammogram Bilateral W Deangelo Social History Tobacco Use Types Packs/Day Years Used Date Smoking Tobacco: Former Cigarettes Q uit: 1988 Smokeless Tobacco: Never AUDIT-C Answer Date Recorded Q1: How often do you have a drink containing alc ohol? Monthly or less 01/25/2021 Q2: How many drinks containi ng alcohol do you have on a typical day when you are drinking? 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
--- OUTSIDE RECORDS SUMMARY | 2025-08-04 12:54 | XMS_ITS | Clinical Summary ---
Author Organization [facility] [employer] Address [address] [place] [address] Care Team Providers Care Information Technology Associate Name Role Phone Bud Sweet MD Primary Care Provider [phone] Source Comments [facility] [employer],non-owned Affiliates and Associated Physician Practices is amultiple site organization consisting of ambulatory clinics and hospital sitesin [place], [place], [place] and [place]. This disclosure is being madepursuant to the Care Everywhere program and may not contain all information available regarding this patient. Last updated 18.[facility] [employer] Allergies No known active allergies Medications * Be aware that medications may not be up to date on this document. Alwaysverify current medications with the patient. atorvastatin (Lipitor) 80 MG tablet 1 (one) tablet at bedtime 4 Active traMADol (Ultram) 50 MG tablet 1 (one) tablet 4 Active pantoprazole (Protonix) 40 MG packet 1 (one) packet 4 Active celecoxib (CeleBREX) 100 MG capsule Take 1 (one) capsule by mouth once daily 4 Active hydroCHLOROthi azide (Microzide) 12.5 MG capsule Take 1 (one) capsule by mouth once daily Active metFORMIN (Glucophage) 500 MG tablet Take 1 (one) tablet by mouth 2 times daily with morning and evening meal Active losartan (Cozaar) 100 MG tablet Take 1 (one) tablet by mouth once daily Active ALPRAZolam (Xanax) 0.25 MG tablet Take 1 (one) tablet by mouth 3 times daily as needed for Anxiety Active [place]-3 Fatty Acids (KP Fish Oil) 1200 MG Take by mouth once daily Active DULoxetine (Cymbalta) 60 MG capsule Take 1 (one) capsule by mouth once daily Active VITAMIN D PO Active acetaminophen (Tylenol) 500 MG tablet Take 1 (one) tablet by mouth every 4 hours as needed for Fever or Pain Maximum allowable Acetaminophen amount = 4 Grams (4000 mg) / 24 hours. Active Active Problems No known active problems Encounters Date Type Department Care Team Description 08/01/2025 9:03 AM APARTMENT COMMUNITY MANAGER - 08/01/2025 11:59 PM [facility] Hospital Encounter [facility] [address] [place] [address] Amandeep Castrejon MD Discharge Disposition: Home or Self Care 08/01/2025 Results Follow-Up [facility] [address] [facility] [address] [place] [address] Dima Harrison APRN-CNP 08/01/2025 Travel 06/09/2025 Telephone [facility] [address] [place] [address], [address] [phone] Amandeep Castrejon MD Patient Requested Call 06/03/2025 2:10 PM CDT Office Visit [facility] [address] [place] [address], [facility] [address] [place] [phone] Amandeep Castrejon MD Pain in both knees, unspecified chronicity (Primary Dx) 06/03/2025 1:25 PM CDT Ancillary Procedure [facility] - Radiology [address] [place] [phone] Amandeep Castrejon MD Pain in both knees, unspecified chronicity from Last 3 Months Social History Tobacco Use Types Packs/Day Years Used Date Smoking Tobacco: Never Smokeless Tobacco: Never Tobacco Cessation:Counseling Given: No Alcohol Use Standard Drinks/Week Comments Yes 0 (1 standard drink = 0.6 oz pur e alcohol) social Comments Unknown Sex and Gender Information Value Date Recorded Sex Assigned at Not on file Legal Sex Female 2:11 PM CDT Gender Identity Not on file Sexual Orientation Not on file Last Filed Vital Signs Vital Sign Reading Time Taken Comments Blood Pressure 118/72 08/01/2025 9:26 AM APARTMENT COMMUNITY MANAGER Pulse 73 08/01/2025 9:26 AM APARTMENT COMMUNITY MANAGER Temperature 35.8 C (96.4 F) 08/01/2025 9:26 AM APARTMENT COMMUNITY MANAGER Respiratory Rate - - Oxygen Saturation 95% 08/01/2025 9:26 AM APARTMENT COMMUNITY MANAGER Inhaled Oxygen Concentration - - Weight 97.8 kg (215 lb 9.6 oz) 08/01/2025 9:21 A M APARTMENT COMMUNITY MANAGER Height 157.5 cm (5' 2) 08/01/2025 9:21 AM APARTMENT COMMUNITY MANAGER Body Mass Index 39.43 08/01/2025 9:21 AM APARTMENT COMMUNITY MANAGER Plan of Treatment Upcoming Encounters Date Type Department Care Team (Latest Contact Info) Description 08/29/2025 8:25 AM APARTMENT COMMUNITY MANAGER Hospital Encounter [facility] - Perioperative Surgery [address] [place] [address] [place] [id number] [facility] [address] [place] [address] Surgery General 08/29/2025 8:25 AM APARTMENT COMMUNITY MANAGER - 08/29/2025 10:41 AM APARTMENT COMMUNITY MANAGER Surgery [facility] - Perioperative Surgery [address] [place] [address] [place] [id number] [facility] [address] [place] [id number] ARTHROPLASTY LEFT TOTAL KNEE Scheduled Procedures Name Priority Associated Diagnoses Date/Ti me ARTHROPLASTY TOTAL KNEE 01/2025 8:25 AM APARTMENT COMMUNITY MANAGER Health Maintenance Due Date Last Done Comments BONE DENSITY TESTING 1950 COLOGUARD (AGES 45-75) - COLON CA SCREENING 1950 COLON MONITORING 1950 COLONOSCOPY - COLON CA SCREENING 1950 CT COLONOGRAPHY - COLON CA SCREENING 1950 Colorectal Cancer Screening 1950 FIT - COLON CA SCREENING 1950 FLEX SIG - COLON CA SCREENING 1950 MEDICARE AWV 12 MONTHS 1950 HEPATITIS C SCREENING 05/27/1969 DTAP/TDAP/TD VACCINES (1 - Tdap) 1970 PNEUMOCOCCAL VACCINE 50+ (1 of 1 - PCV) 2001 ZOSTER VACCINE (1 of 2) 2001 DEPRESSION SCREENING 09/25/2024 COVID-19 VACCINE (5 - season) 2025 06/22/2022, 07/27/2021, 01/01/2021, Additional history exists INFLUENZA VACCINE (#1) 2025 , 07/13/2020, 07/04/2019, Additional history exists Respiratory Syncytial Virus (RSV) Vaccine Pt: or over 60 yrs (1 - 1-dose 75+ series) 2026 MAMMOGRAM 06/20/2027 06/20/2025, 05/27, 06/12/2024, Additional history exists HEPATITIS B VACCINE Aged Out No longe r eligible based on patient's age to complete this topic HIB VACCINE Aged Out No longer eligi ble based on patient's age to complete this topic HPV VACCINE Aged Out No longer eligi ble based on patient's age to complete this topic MENINGOCOCCAL (Group B) VACCINE SHARED DECISION-MAKING Aged Out No longer eligible based on patient's age to complete this topic MENINGOCOCCAL GROUPS A/C/Y/W VACCINE Aged Out No longer eligible based on patient's age to complete this topic Procedures Procedure Name Priority Date/Time Associated Diagnosis Comments EKG 12-LEAD STAT 08/01/2025 9:36 AM APARTMENT COMMUNITY MANAGER Preop testing HEMOGLOBIN A1C STAT 08/01/2025 9:13 AM APARTMENT COMMUNITY MANAGER Preop testing COMPREHENSIVE METABOLIC PANEL STAT 08/01/2025 9:13 AM APARTMENT COMMUNITY MANAGER Preop testing CBC W AUTO DIFFERENTIAL STAT 08/01/2025 9:13 AM APARTMENT COMMUNITY MANAGER Preop testing XR KNEE BILAT 3VW Routine 06/03/2025 1:4 3 PM CDT Pain in both knees, unspecified chronicity from Last 3 Months Results * HEMOGLOBIN A1C (08/01/2025 9:13 AM APARTMENT COMMUNITY MANAGER) Pathologist [facility] Hemoglobin A1c 5.4 <5.7 % 08/01/2025 9:30 AM [facility] Estimated Average Glucose 108 mg/dL 08/01/2025 9:30 AM [facility] Blood BLOOD SPECIMEN / Unknown Venipuncture / Unknown 08/01/2025 9:13 AM APARTMENT COMMUNITY MANAGER 08/01/2025 9:21 AM [facility] Narrative [facility] - 08/01/2025 9:30 AM [facility] HbA1c Interpretation: Normal: < 5.7% Pre-diabetes: 5.7-6.4% Diabetes: Equal to or greater than 6.5% Test results diagnostic of diabetes should be repeated for confirmation. Treatment target values recommended by ADA and other clinical organizations should be used to evaluate metabolic control in patients. This test should not replace glucose testing for patients with Type 1 diabetes, pediatric patients, or women. Falsely low HbA1c results may be observed in patients with clinical conditions that shorten erythrocyte life span or decrease mean erythrocyte age such as the presence of unstable hemoglobin variants, elevated hemoglobin F level or other causes of hemolytic anemia. HbA1c may not accurately reflect glycemic control when clinical conditions that affect erythrocyte survival are present. Severe Iron deficiency anemia may yield falsely high results. Hemoglobin A1c assay should not be used to diagnose or monitor diabetes in patients with malignancy, recent blood transfusion, chronic kidney or liver disease. This method may yield falsely low results when hemoglobin (HbF) exceeds 5% in the specimen. The Ramirez Alinity assay for the measurement of HbA1c is a National Glycohemoglobin Standardization Program (NGSP) certified method. Dima Harrison APRN-ADVERTISING DISPATCH CLERK LAB - CHEMISTRY ORDERABL ES Final Result [facility] [address] [place] [address] * (ABNORMAL) CBC W AUTO DIFFERENTIAL (08/01/2025 9:13 AM APARTMENT COMMUNITY MANAGER) [facility] WBC 7.3 4.0 - 10.7 x10E9/L 08/01/2025 9:23 AM [facility] RBC Count 3.91 3.90 - 5.20 x10E12/L 08/01/2025 9:23 AM [facility] Hemoglobin 11.6(L) 11.9 - 15.8 g/dL 08/01/2025 9:23 AM [facility] Hematocrit 35.0 34.8 - 46.1 % 08/01/2025 9:23 AM [facility] MCV 89.5 80.0 - 98.0 fL 08/01/2025 9:23 AM [facility] MCH 29.7 26.7 - 33.6 pg 08/01/2025 9:23 AM [facility] MCHC 33.1 31.7 - 36.3 g/dL 08/01/2025 9:23 AM [facility] RDW-CV 12.4 11.3 - 14.8 % 08/01/2025 9:23 AM [facility] Platelet Count 297 150 - 420 x10E9/L 08/01/2025 9:23 AM [facility] MPV 9.0 7.8 - 11.4 fL 08/01/2025 9:23 AM [facility] Neutrophil % 65.8 41.0 - 74.0 % 08/01/2025 9:23 AM [facility] Lymphocyte % 24.8 17.0 - 47.0 % 08/01/2025 9:23 AM [facility] Monocyte % 6.5 3.0 - 11.0 % 08/01/2025 9:23 AM [facility] Eosinophil % 1.8 0.0 - 7.0 % 08/01/2025 9:23 AM [facility] Basophil % 1.0 0.0 - 1.6 % 08/01/2025 9:23 AM [facility] Immature Granulocytes % 0.1 0.0 - 1.0 % 08/01/2025 9:23 AM [facility] Neutrophil Absolute 4.78 1.60 - 7.50 x10E9/L 08/01/2025 9:23 AM [facility] Lymphocyte Absolute 1.80 1.00 - 4.40 x10E9/L 08/01/2025 9:23 AM [facility] Monocyte Absolute 0.47 0.15 - 1.00 x10E9/L 08/01/2025 9:23 AM [facility] Eosinophil Absolute 0.13 0.00 - 0.60 x10E9/L 08/01/2025 9:23 AM [facility] Basophil Absolute 0.07 0.00 - 0.13 x10E9/L 08/01/2025 9:23 AM [facility] Blood BLOOD SPECIMEN / Unknown Venipuncture / Unknown 08/01/2025 9:13 AM APARTMENT COMMUNITY MANAGER 08/01/2025 9:21 AM [facility] Dima Harrison JOB SERVICE CONSULTANT-ADVERTISING DISPATCH CLERK LAB - HEMATOLOGY ORDERAB LES Final Result [facility] [address] [place] [address] * (ABNORMAL) COMPREHENSIVE METABOLIC PANEL (08/01/2025 9:13 AM [facility]) Glucose 109(H) 70 - 99 mg/dL 08/01/2025 9:36 AM [facility] Sodium 140 136 - 145 mmol/L 08/01/2025 9:36 AM [facility] Potassium 4.2 3.5 - 5.1 mmol/L 08/01/2025 9:36 AM [facility] Chloride 102 98 - 107 mmol/L 08/01/2025 9:36 AM [facility] CO2 28 22 - 29 mmol/L 08/01/2025 9:36 AM [facility] Calcium 9.9 8.4 - 10.4 mg/dL 08/01/2025 9:36 AM [facility] Anion Gap 10 6 - 16 mmol/L 08/01/2025 9:36 AM [facility] BUN 29(H) 7 - 26 mg/dL 08/01/2025 9:36 AM [facility] Creatinine 1.06 0.50 - 1.20 mg/dL 08/01/2025 9:36 AM [facility] Alkaline Phosphatase 62 40 - 150 U/L 08/01/2025 9:36 AM [facility] ALT 19 6 - 57 U/L 08/01/2025 9:36 AM [facility] AST 21 10 - 48 U/L 08/01/2025 9:36 AM [facility] Protein Total 7.4 6.4 - 8.3 gm/dL 08/01/2025 9:36 AM APARTMENT COMMUNITY MANAGER [facility] Albumin 4.2 3.1 - 4.5 gm/dL 08/01/2025 9:36 AM APARTMENT COMMUNITY MANAGER [facility] Bilirubin Total 0.4 0.2 - 1.2 mg/dL 08/01/2025 9:36 AM [facility] eGFR by CKD-EPI 55(L) >=90 mL/min/1.7 3 m2 08/01/2025 9:36 AM [facility] Comment:Estimated Glomerular Filtration Rate (eGFR) calculated using the CKD-EPI Creatinine Equation (2020), per the National Kidney Foundation and [place] Society of Nephrology recommendations. Blood BLOOD SPECIMEN / Unknown Venipuncture / Unknown 08/01/2025 9:13 AM APARTMENT COMMUNITY MANAGER 08/01/2025 9:21 AM APARTMENT COMMUNITY MANAGER Dima Harrison JOB SERVICE CONSULTANT-ADVERTISING DISPATCH CLERK LAB - CHEMISTRY ORDERABL ES Final Result Performing Organization Address City/[facility]/ZIP Co de Phone Number [facility] [id number] [place], [place] [id number] * XR Knee Bilat 3Vw (06/03/2025 1:43 PM CDT) Narrative [facility] [address] - 06/03/2025 1:43 PM CDT Please see progress note in Epic for results. Amandeep Castrejon MD DIAGNOSTIC IMAGING ORDERABLES Final Result [facility] [place] [address] from Last 3 Months Insurance MEDICARE MEDICARE [employer] Care Teams Information Technology Associate Relationship Specialty Start Date End Date Bud Sweet MD [address] [place] [address] PCP - General 03/05/19
--- OUTSIDE RECORDS SUMMARY | 2025-08-04 12:54 | XMS_ITS | Clinical Summary ---
Author Organization [facility] Address [address] [place] [address] Care Team Providers Care Senior Vice President And Chief Information Officer Name Role Phone Bud Sweet MD Primary Care Provider [phone] Estefani Givens DPM Unavailable [phone] Crystal Lea UPHOLSTERER HELPER Unavailable [phone] Allergies No known active allergies Medications atorvastatin (LIPITOR) 40 mg tablet Take 1 tablet (40 mg total) by mouth daily 01/25/2019 Active fish oil-dha-epa 1,200-144-216 mg capsule Take by mouth daily Active oxyCODONE-aceta minophen (PERCOCET) 5-325 mg per tabletIndicatio ns:Pain Take 1 tablet by mouth every 4 (four) hours as needed for pain 30 tablet 01/29/2021 Active acetaminophen ER (TYLENOL) 650 mg 8 hr tablet 1 tablet (650 mg total) 08/03/2021 Active traMADoL 5 mg/mL solution 50 mg 01/22/2024 Acti ve metFORMIN (GLUCOPHAGE) 500 mg tablet Take 1 tablet (500 mg total) by mouth Active losartan (COZAAR) 100 mg tablet Take 1 tablet (100 mg total) by mouth daily Active hydroCHLOROthia zide 12.5 mg tablet Take 1 tablet/capsu le (12.5 mg total) by mouth daily Active DULoxetine DR (CYMBALTA) 60 mg capsule Take 1 capsule (60 mg total) by mouth daily Active celecoxib (CeleBREX) 100 mg capsule 1 capsule (100 mg total) 01/22/2024 Active ALPRAZolam (XANAX) 0.25 mg tablet Take 1 tablet (0.25 mg total) by mouth 3 (three) times a day as needed Active pantoprazole (PROTONIX) 40 mg/10 mL syringe .COMPLEX 01/22/2024 Active omega-3 fatty acids-fish oil 684-1,200 mg capsule,delayed release(DR/EC) Take by mouth daily Active cholecalciferol (REPLESTA) 50,000 unit wafer daily 06/23/2023 Active Active Problems Problem Noted Date Diagnosed Date Fibrocystic breast changes, bilateral 06/08/2022 Family history of breast cancer 06/09/2021 Calcaneal spur of right foot 01/13/2021 Overview (01/13/2021): Added automatically from request for surgery [id number] Tendonitis, Achilles, right 01/13/2021 Overview (01/13/2021): Added automatically from request for surgery [id number] Abnormal mammogram 06/12/2020 Encounters Date Type Department Care Team Description 06/23/2025 Results Follow-Up [facility] Medicine Surgery [address] [place] [address] [address] [place] [address] Zarina Brownlee PA Screening Mammogram Bilateral W Deangelo 06/20/2025 10:15 AM CDT - 06/20/2025 11:59 PM CDT Hospital Encounter [facility] [place] - Breast Imaging [address] [place] [address] [address] [place] [address] Family history of breast cancer; Encounter for screening mammogram for malignant neoplasm of breast Discharge Disposition: Discharge to home or self care 06/20/2025 10:00 AM CDT Office Visit [facility] Medicine Surgery [address] [place] [address] [address] [place] [address] Zarina Brownlee PA Family history of breast cancer (Primary Dx); Fibrocystic breast changes, bilateral; Encounter for screening mammogram for malignant neoplasm of breast from Last 3 Months Immunizations Immunization Administration Dates Next Due COVID-19 mRNA (PFIZER) 0.3 m L (30 mcg) vaccine (12 years and up) 07/06/2023 Influenza, Quad, Adjuvantate d, Intramuscular 07/27/2021 Influenza, Quadrivalent, Hig h Dose, Preservative Free, Intrr 05/26/2023,06/22/2022 Influenza, Quadrivalent, Spl it, Preservative Free, Intramuscular 07/13/2020 Influenza, Trivalent, Adjuva nted, Intramuscular 07/04/2019 Influenza, Trivalent, High D ose, Split, Preservative Free, Intramuscular 07/27/2021,07/30/2018,06/27/2017 Influenza, Trivalent, IM (MDV) 07/31/2018 Influenza, Unspecified 07/09/2013 Moderna SARS-CoV-2 Monovalen t Vaccination (12+ YRS) 07/27/2021,01/01/2021,12/04/2020 Moderna Sars-cov-2 Monovalen t Booster Vaccination (12+ YRS) 07/27/2021,01/01/2021,12/04/2020 Pneumococcal Conjugate PCV 13 07/30/2018, 017 Pneumococcal Polysaccharide PPV23 07/13/2020 RSV, Bivalent, Protein Subun it Rsvpref, Diluent (Abrysvo) 05/26/2023 Sars-cov-2 Covid-19 Mrna, Bi valent, Original/omicron Ba.1, A 06/22/2022 Tdap 05/26/2023,07/28/2017 ZOSTER LIVE 11/12/2020,09/07/2020,06/27/2017 Medical History Medical History Date Comments Depression Arthritis Family History Medical History Relation Name Comments Breast cancer Mother's Sister Cervical cancer Sister Relation Name Status Comments Mother's Sister Sister Social History Tobacco Use Types Packs/Day Years Used Date Smoking Tobacco: Former Cigarettes Q uit: 1988 Smokeless Tobacco: Never Tobacco Cessation:Counseling Given: Not Answered AUDIT-C Answer Date Recorded Q1: How often [...] on file Legal Sex Female 6:34 AM HEALTH INSURANCE AGENT Gender Identity Not on file Sexual Orientation Not on file Obstetrics History Para Term AB IAB SAB Ectopic Multiple Livin g Live Births 2 2 Date Outcome GA Total Labor Labor/2nd/3rd Weight Sex Type Anes PTL Ahsley A1 A5 Name Clin Last Filed Vital Signs Vital Sign Reading Time Taken Comments Blood Pressure 132/49 01/29/2021 3:33 PM CDT Pulse 68 01/29/2021 3:33 PM CDT Temperature 36.1 C (96.9 F) 01/29/2021 2:23 PM CDT Respiratory Rate 20 01/29/2021 3:33 PM CDT Oxygen Saturation 95% 01/29/2021 3:33 PM CDT Inhaled Oxygen Concentration - - Weight 101.5 kg (223 lb 12.8 oz) 2024 10:56 AM CDT Height 158 cm (5' 2.21) 06/20/2025 10: 56 AM CDT Body Mass Index 40.66 06/20/2025 10:56 AM CDT Plan of Treatment Health Maintenance Due Date Last Done Comments Colon Cancer Screening-Colonoscopy 1950 Depression Screening 1950 Fall Risk Assessment 1950 Hepatitis C Screening 1950 Osteoporosis Screening-Bone Density Scan 1950 Hepatitis B Screening 1969 Well Visit 65+ 2016 Zoster Vaccine (2 of 3) 01/07/2021 11/12/19 21, 09/07/2020, 06/27/2017 Covid-19 Vaccine (2024-10 6 season) 2025 07/06/2023, 06/22/2022, 07/27/2021, Additional history exists Influenza Vaccine (#1) 2025 , 06/22/2022, 07/27/2021, Additional history exists Breast Cancer Screening-Mammogram 06/20/2026 06/20/2025, 06/12/2024, 06/09/2023, Additional history exists DTaP/Tdap/Td Vaccine (3 - Td or Tdap) 05/26/2033 05/26/2023, 07/28/2017 Pneumococcal vaccine 65+ Completed 020, 07/30/2018, 06/27/2017 Medical Devices Implanted Type Area Shampoo Person Device Identifier Shelf Expiration Date Model / Serial / Lot [employer] [id number] Suturebridge [place] Drill Guide Punch Tap Set Implant Achilles - [id number] Implanted:Qty: 1 on 01/29/2021 by Estefani Givens DPM at [facility] Right: Foot Frida Cisneros 08/24/2024 [id number] / / [id number] Procedures Procedure Name Priority Date/Time Associated Diagnosis Comments SCREENING MAMMOGRAM BILATERAL W DEANGELO Schedule Routine, Read Routine (OP Routine) 06/20/2025 11:06 AM CDT Family history of breast cancer Encounter for screening mammogram for malignant neoplasm of breast from Last 3 Months Results * Screening Mammogram Bilateral W Deangelo (06/20/2025 11:06 AM CDT) Anatomical Region Laterality Modality Breast Bilateral Mammography Impressions 06/23/2025 12:37 PM CDT Bilateral No evidence of malignancy in either breast. OVERALL BI-RADS FINAL ASSESSMENT: 2 - Benign RECOMMENDATION: Recommend bilateral annual screening mammography. Narrative 06/23/2025 12:37 PM CDT EXAMINATION: Screening Mammogram Bilateral W Deangelo: 06/20/2025 COMPARISON: Relevant prior studies available at the time of interpretation were reviewed, including the most recent mammogram on: 06/12/2024, 06/09/2023, 07/13/2022, 06/08/2022, 06/09/2021, 05/14/2020, and 02/13/2019. TECHNIQUE: Mammography was performed with 2D and 3D digital breast tomosynthesis (DBT) images. CAD was utilized. BREAST PARENCHYMAL COMPOSITION: There are scattered areas of fibroglandular density. FINDINGS: Bilateral There is no suspicious mass, calcification, or architectural distortion in either breast. There have been no significant interval changes from prior studies. Zarina CARMEN IMDemarcus MAMMO PROCEDURES Final Resu lt from Last 3 Months Insurance MEDICARE [facility] MEDICARE [facility] MEDICARE [facility] [place] [address] Care Teams Senior Vice President And Chief Information Officer Relationship Specialty Start Date End Date Bud Sweet MD PCP - General Internal Medicine 05/26/20 Estefani Givens DPM [address] [place] [address] Consulting Physician Foot and Ankle Surg 01/29/21 Crystal Lea NP [address] [place] [address] Nurse Practitioner Nurse Practitioner 06/09/21
== END 2025-08-04 12:41 | disposition home or self-care (01) ==
PROVIDERS: PCP Internal Medicine; Visit Provider Internal Medicine
DX: M19.072 Primary osteoarthritis, left ankle and foot (principal); M77.32 Calcaneal spur, left foot; M77.52 Other enthesopathy of left foot and ankle
CPT/HCPCS: 73610; 73630